=== PATIENT | female | born 2000 ===

== ENCOUNTER 2021-07-12 10:05 | Emergency (ER) | payer MEDICAID, OTHER ==
[~2021-07-12] VITALS: Ht 152.4 cm; Wt 80.3 kg
[2021-07-12 10:07] VITALS: BP 129/74
[2021-07-12] MEDS ORDERED: ONDANSETRON ODT 4 MG TAB PO ONE (10:15)
[2021-07-12 11:27] LABS: Basophils # (auto) 0 10 ^3/uL (0-0.2); Basophils % (auto) 0.3 % (0.0-2.0); Eosinophils # (auto) 0 10 ^3/uL (0-0.8); Eosinophils % (auto) 0.2 % (0.0-7.0); Hematocrit 40.6 % (36.0-46.0); Hemoglobin 14.1 g/dL (12.2-16.2); Lymphocytes # (auto) 1.3 10 ^3/uL (0.4-5.4); Lymphocytes % (auto) 12.6 % (10.0-50.0); Mean Corpuscular Hemoglobin 30.6 pg (28.0-32.0); Mean Corpuscular Hgb Conc. 34.6 g/dL (32.0-36.0); Mean Corpuscular Volume 88.3 fL (80.0-100.0); Monocytes # (auto) 0.5 10 ^3/uL (0-1.3); Monocytes % (auto) 5.2 % (0.0-12.0); Neutrophils # (auto) 8.5 10 ^3/uL (1.6-8.6); Neutrophils % (auto) 81.7 % (37.0-80.0); Red Cell Distribution Width 12.8 % (11.8-14.3); White Blood Cell 10.4 10^3/uL (4.4-10.8)
[2021-07-12 12:07] LABS: Potassium 3.8 mmol/L (3.5-5.1)
[2021-07-12 12:14] LABS: Albumin 4.1 g/dL (3.4-5.0); BUN/Creatinine Ratio 28.6; Bilirubin, Total 0.6 mg/dL (0.2-1.0); Total Protein 8.3 g/dL (6.4-8.2)
== END 2021-07-12 14:31 | disposition left against medical advice (07) ==
LOC: ER 10:05
DX: R10.84 Generalized abdominal pain (principal); R11.2 Nausea with vomiting, unspecified
CPT/HCPCS: 36415; 80053; 83690; 84702; 85025; 99283; Q0162

== ENCOUNTER → 2022-03-02 | Outpatient (CLI) | payer MEDICAID ==
[2022-03-02 11:12] LABS: Basophils # (auto) 0 10 ^3/uL (0-0.2); Basophils % (auto) 0.5 % (0.0-2.0); Eosinophils # (auto) 0 10 ^3/uL (0-0.8); Eosinophils % (auto) 0.2 % (0.0-7.0); Hemoglobin 10.6 g/dL (12.2-16.2); Lymphocytes # (auto) 1.4 10 ^3/uL (0.4-5.4); Lymphocytes % (auto) 14.7 % (10.0-50.0); Mean Corpuscular Hemoglobin 27.1 pg (28.0-32.0); Mean Corpuscular Volume 84.9 fL (80.0-100.0); Monocytes # (auto) 0.6 10 ^3/uL (0-1.3); Neutrophils # (auto) 7.5 10 ^3/uL (1.6-8.6); Neutrophils % (auto) 78.6 % (37.0-80.0); Nucleated Red Blood Cells % 0.1 %; Red Blood Cells 3.89 10^6/uL (4.0-5.20); Red Cell Distribution Width 13.6 % (11.8-14.3); White Blood Cell 9.5 10^3/uL (4.4-10.8)
[2022-03-03 08:06] LABS: RPR Non Reactive (Non Reactive)
== END | disposition home or self-care (01) ==
LOC: LAB 10:56
PROVIDERS: ATTEND Obstetrics & Gynecology
DX: Z34.80 Encounter for supervision of other normal pregnancy, unspecified trimester (principal); Z3A.00 Weeks of gestation of pregnancy not specified
CPT/HCPCS: 36415; 84112; 85025; 86592

== ENCOUNTER 2022-03-25 03:57 | Inpatient (IN) | payer MEDICAID ==
[2022-03-23 10:42] LABS: Basophils # (auto) 0 10 ^3/uL (0-0.2); Eosinophils # (auto) 0 10 ^3/uL (0-0.8); Eosinophils % (auto) 0.1 % (0.0-7.0); Mean Corpuscular Hemoglobin 26.1 pg (28.0-32.0); Mean Corpuscular Hgb Conc. 31.7 g/dL (32.0-36.0); Mean Corpuscular Volume 82.3 fL (80.0-100.0); Monocytes # (auto) 0.5 10 ^3/uL (0-1.3); Neutrophils # (auto) 6.8 10 ^3/uL (1.6-8.6)
[2022-03-23 10:44] LABS: Basophils % (auto) 0.3 % (0.0-2.0); Hemoglobin 10.5 g/dL (12.2-16.2); Lymphocytes # (auto) 1.3 10 ^3/uL (0.4-5.4); Lymphocytes % (auto) 14.6 % (10.0-50.0); Monocytes % (auto) 5.6 % (0.0-12.0); Neutrophils % (auto) 79.4 % (37.0-80.0); Nucleated Red Blood Cells % 0.1 %; Red Blood Cells 4.01 10^6/uL (4.0-5.20); Red Cell Distribution Width 14.1 % (11.8-14.3); White Blood Cell 8.6 10^3/uL (4.4-10.8)
[2022-03-23 10:48] LABS: Urine Bacteria FEW /hpf (None Seen); Urine Blood Negative /uL (Negative); Urine Mucus FEW (None Seen); Urine Specific Gravity 1.018 (1.001-1.035); Urine WBC 11 /hpf (0 - 5)
[2022-03-23 11:00] LABS: INR 0.92 (0.9-1.15); Partial Thromboplastin Time 28.6 sec (24.6-33.4)
[2022-03-23 11:10] LABS: Albumin 2.6 g/dL (3.4-5.0); Calcium 8.3 mg/dL (8.5-10.1); Potassium 4.2 mmol/L (3.5-5.1)
[2022-03-23 11:12] LABS: Alcohol, Urine < 3.0 mg/dL (0-10); Amphetamine Screen, Urine NEGATIVE (NEGATIVE); Barbiturate Scree,Urine NEGATIVE (NEGATIVE); Benzodiazephine Screen, Urine NEGATIVE (NEGATIVE); Cannabinoid Screen, Urine NEGATIVE (NEGATIVE); Cocaine Screen, Urine NEGATIVE (NEGATIVE); Opiate Scree,Urine NEGATIVE (NEGATIVE); Phencyclidine Screen, Urine NEGATIVE (NEGATIVE)
[2022-03-23 11:13] LABS: BUN/Creatinine Ratio 15.7; Bilirubin, Total 0.4 mg/dL (0.2-1.0); Total Protein 6.7 g/dL (6.4-8.2)
[2022-03-24 06:06] LABS: RPR Non Reactive (Non Reactive)
[2022-03-25] VITALS (15 sets, daily range): BP systolic 110–132; BP diastolic 42–84
[~2022-03-25] VITALS: Ht 160 cm; Wt 92.1 kg
[2022-03-25] MEDS ORDERED: LACTATED RINGER'S 1,000 ML IV SCH (04:15)
[2022-03-25] MEDS ORDERED: ceFAZolin 1GM/50ML 50 ML IV ONE (04:15)
[2022-03-25] MEDS ORDERED: LACTATED RINGER'S 1,000 ML IV ONE (04:15)
[2022-03-25] MEDS ORDERED: TETRACAINE 1% INJ 2 ML VIAL IJ ONE (08:16)
[2022-03-25] MEDS ORDERED: MIDAZOLAM HCL 2MG/2ML 2ml VIAL (1mg/ml) ONE (08:24)
[2022-03-25] MEDS ORDERED: fentaNYL CITRATE 100 MCG/2 ML VL ONE (08:24)
[2022-03-25] MEDS ORDERED: MORPHINE SULF PF 5 MG/10 ML VIAL ONE (08:24)
[2022-03-25] MEDS ORDERED: DOCU-94 PO (08:41)
[2022-03-25] MEDS ORDERED: HYDR-4902 PO (08:41)
[2022-03-25] MEDS ORDERED: IBUP800T27 PO (08:41)
[2022-03-25] MEDS ORDERED: oxyTOCIN 10 UNIT/ML 10ML VIAL ONE (08:54)
[2022-03-25] MEDS ORDERED: GUM (CHEWING) 1 GUM CHEW CHEW ONE (09:15)
[2022-03-25] MEDS ORDERED: LACT. RINGERS/OXYTOCIN 20UNITS 1,000 ML IV ONE (09:15)
[2022-03-25] MEDS ORDERED: ceFAZolin 1GM/50ML 50 ML IV SCH (09:15)
[2022-03-25] MEDS: OXYTOCIN 10UNIT/ML 1ML VIAL ONE ×2 (09:46→10:10)
[2022-03-25] MEDS ORDERED: ONDANSETRON HCL 4 MG/2 ML VIAL ONE (09:48)
[2022-03-25] MEDS ORDERED: KETOROLAC TROMETH 30 MG/ML 1ML VIAL IV PRN (10:00)
[2022-03-25] MEDS ORDERED: HYDROmorphone HCL 2 MG/ML VL/or syr IV PRN (10:00)
[2022-03-25] MEDS ORDERED: NALBUPHINE HCL 10 MG/1ml INJECTION SUBCUT ONE (10:00)
[2022-03-25] MEDS ORDERED: ePHEDrine SULFATE 50 MG/ML AMP IV PRN (10:00)
[2022-03-25] MEDS ORDERED: DexAMETHasone SOD PHOS 10MG/1ML VIAL INJ IV PRN (10:00)
[2022-03-25] MEDS ORDERED: LABETALOL HCL 5 MG/ML 4ML SYRINGE IV PRN (10:00)
[2022-03-25] MEDS ORDERED: diphenhdrAMINE HCL 50 MG/1 ML VL IV PRN (10:00)
[2022-03-25] MEDS ORDERED: NALOXONE HCL 0.4 MG/ML VIAL IV PRN (10:00)
[2022-03-25] MEDS ORDERED: MIDAZOLAM HCL 2MG/2ML 2ml VIAL (1mg/ml) IV PRN (10:00)
[2022-03-25] MEDS ORDERED: ONDANSETRON HCL 4 MG/2 ML VIAL IV PRN ×2 (10:00)
[2022-03-25] MEDS ORDERED: METOCLOPRAMIDE HCL 5MG/ml INJ 2ml VIAL IV ONE (11:00)
[2022-03-25] MEDS ORDERED: METOCLOPRAMIDE HCL 5MG/ml INJ 2ml VIAL ONE (11:00)
[2022-03-25] MEDS ORDERED: DexAMETHasone SOD PHOS 4 MG/1ML SDV INJ ONE (12:18)
[2022-03-25] MEDS ORDERED: DexAMETHasone SOD PHOS 10MG/1ML VIAL INJ IM ONE (12:30)
[2022-03-25] MEDS: ONDANSETRON HCL 4 MG/2 ML VIAL IV PRN ×2 (15:24→20:00)
[2022-03-25] MEDS: ACETAMINOPHEN IV 1000 MG/100ML (10MG/ML) IV PRN ×2 (15:25→23:33)
[2022-03-25] MEDS: ceFAZolin 1GM/50ML 50 ML IV SCH (16:00)
[2022-03-25 21:59] LABS: Hemoglobin 9.8 g/dL (12.2-16.2); Mean Corpuscular Hgb Conc. 32.4 g/dL (32.0-36.0)
[2022-03-25 22:06] LABS: Basophils # (auto) 0.2 10 ^3/uL (0-0.2); Basophils % (auto) 1.1 % (0.0-2.0); Eosinophils # (auto) 0 10 ^3/uL (0-0.8); Hematocrit 30.2 % (36.0-46.0); Lymphocytes # (auto) 0.6 10 ^3/uL (0.4-5.4); Lymphocytes % (auto) 4.1 % (10.0-50.0); Mean Corpuscular Volume 80.2 fL (80.0-100.0); Monocytes # (auto) 0.3 10 ^3/uL (0-1.3); Monocytes % (auto) 1.8 % (0.0-12.0); Neutrophils # (auto) 14.5 10 ^3/uL (1.6-8.6); Red Blood Cells 3.76 10^6/uL (4.0-5.20); Red Cell Distribution Width 14.1 % (11.8-14.3); White Blood Cell 15.6 10^3/uL (4.4-10.8)
[2022-03-26] VITALS (8 sets, daily range): BP systolic 96–118; BP diastolic 51–68
[2022-03-26] MEDS: ceFAZolin 1GM/50ML 50 ML IV SCH
[2022-03-26 06:53] LABS: Basophils # (auto) 0 10 ^3/uL (0-0.2); Basophils % (auto) 0.1 % (0.0-2.0); Eosinophils # (auto) 0 10 ^3/uL (0-0.8); Hemoglobin 8.4 g/dL (12.2-16.2); Neutrophils # (auto) 11.6 10 ^3/uL (1.6-8.6); Red Cell Distribution Width 13.9 % (11.8-14.3)
[2022-03-26 06:54] LABS: Hematocrit 25.8 % (36.0-46.0); Lymphocytes % (auto) 7.2 % (10.0-50.0); Mean Corpuscular Hemoglobin 26.2 pg (28.0-32.0); Mean Corpuscular Hgb Conc. 32.4 g/dL (32.0-36.0); Mean Corpuscular Volume 80.9 fL (80.0-100.0); Monocytes # (auto) 0.8 10 ^3/uL (0-1.3); Neutrophils % (auto) 86.7 % (37.0-80.0); White Blood Cell 13.4 10^3/uL (4.4-10.8)
[2022-03-26] MEDS: ACETAMINOPHEN IV 1000 MG/100ML (10MG/ML) IV PRN (07:45)
[2022-03-26] MEDS ORDERED: ceFAZolin 1GM/50ML 50 ML IV ONE (08:00)
[2022-03-26] MEDS ORDERED: HYDROcodone-ACET 5/325MG TAB PO PRN (10:00)
[2022-03-26] MEDS: HYDROcodone-ACET 5/325MG TAB PO PRN ×2 (12:33→22:03)
[2022-03-26] MEDS: SIMETHICONE 80 MG CHEWABLE TABLET PO SCH ×3 (12:33→22:00)
[2022-03-26] MEDS: IBUPROFEN 800 MG TAB PO PRN (18:01)
[2022-03-26] MEDS: DOCUSATE SOD 100 MG CAP PO SCH ×2 (21:59→22:00)
[2022-03-26] MEDS: BISACODYL 10 MG RECT SUPP PR ONE (23:45)
[2022-03-27 00:30] VITALS: BP 130/78
[2022-03-27] MEDS: BISACODYL 10 MG RECT SUPP PR ONE (02:25)
[2022-03-27] MEDS: IBUPROFEN 800 MG TAB PO PRN (03:47)
[2022-03-27 04:00] VITALS: BP 136/82
[2022-03-27] MEDS: SIMETHICONE 80 MG CHEWABLE TABLET PO SCH (06:00)
[2022-03-27 08:00] VITALS: BP 132/78
[2022-03-27] MEDS: DOCUSATE SOD 100 MG CAP PO SCH (10:12)
[2022-03-27] MEDS: HYDROcodone-ACET 5/325MG TAB PO PRN (10:13)
[2022-03-27 11:58] VITALS: BP 130/80
== END 2022-03-27 13:50 | disposition home or self-care (01) | DRG 540 ==
LOC: LDRP 03:57
PROVIDERS: ADMIT Obstetrics & Gynecology; ATTEND Obstetrics & Gynecology
PROC: 10D00Z1 Extraction of Products of Conception, Low, Open Approach (ICD-10-PCS; principal; 2022-03-25 08:20)
DX: O77.0 Labor and delivery complicated by meconium in amniotic fluid (principal); O99.214 Obesity complicating childbirth; O34.211 Maternal care for low transverse scar from previous cesarean delivery; Z20.822 Contact with and (suspected) exposure to COVID-19; Z37.0 Single live birth; Z3A.39 39 weeks gestation of pregnancy
CPT/HCPCS: 36415; 59025; 80053; 80307; 81001; 85025; 85610; 85730; 86592; 86850; 86900; 86901; 86920; 94760; 94762; 96360; 96361; 96365; 96374; 96375; G0378; J0131; J0690; J1100; J2250; J2405; J2590